=== PATIENT | male | born 1985 | race Caucasian/White ===

== ENCOUNTER 2018-09-25 15:29 | Observation (INO) | payer OTHER ==
[2018-09-25 18:01] LABS: Basophils # (A) 0.1 k/uL (0-0.2); Basophils % (A) 1 %; Eosinophils # (A) 0.3 k/uL (0-0.7); Eosinophils % (A) 4 %; HCT 47.1 % (39.0-53.0); HGB 15.6 gm/dL (13.0-17.5); Lymphocytes # (A) 2.3 k/uL (1.0-4.8); Lymphocytes % (A) 26 %; MCH 31.2 pg (25.0-35.0); MCHC 33.2 g/dL (31.0-37.0); Mean Platelet Volume 6.4; Monocytes # (A) 0.7 k/uL (0-1.0); Monocytes % (A) 8 %; Neutrophils # (A) 5.2 k/uL (1.3-7.7); Neutrophils % (A) 59 %; Platelet Count 283 k/uL (150-450); RBC 5.01 m/uL (4.30-5.90); RDW 12.5 % (11.5-15.5); WBC 8.9 k/uL (3.8-10.6)
[2018-09-25 18:21] LABS: ALT 21 U/L (21-72); AST 25 U/L (17-59); African American GFR (CKD) >90 (>60 ml/min/1.73 sqM); Albumin 4.6 g/dL (3.5-5.0); Alkaline Phosphatase 110 U/L (38-126); Anion Gap 12 mmol/L; Blood Urea Nitrogen 15 mg/dL (9-20); Calcium 9.3 mg/dL (8.4-10.2); Carbon Dioxide 27 mmol/L (22-30); Chloride 102 mmol/L (98-107); Glucose 98 mg/dL (74-99); Potassium 4.5 mmol/L (3.5-5.1); Sodium 141 mmol/L (137-145); Total Bilirubin 0.4 mg/dL (0.2-1.3); Total Protein 7.7 g/dL (6.3-8.2)
[2018-09-25] MEDS ORDERED: AMPICILLIN-SULBACTAM 3 GM in SODIUM CHLORIDE 0.9% 100 ML IVPB STA (18:33)
[2018-09-25] MEDS: SODIUM CHLORIDE 0.9% 1,000 ML IV SCH (19:42)
--- NOTE | 2018-09-25 19:44 | ED ---
General Adult HPI - General Chief complaint: Extremity Problem,Nontraumatic Stated complaint: infected knee Time Seen by Provider: 09/25/18 18:18 Source: patient Mode of arrival: ambulatory Limitations: no limitations - Related Data Home Medications Medication Instructions Recorded Confirmed Cephalexin [Keflex] 500 mg PO TID 09/25/18 09/25/18 Allergies Allergy/AdvReac Type Severity Reaction Status Date / Time No Known Allergies Allergy Verified 09/25/18 19:31 Review of Systems ROS Statement: Those systems with pertinent positive or pertinent negative responses have been documented in the HPI. Review of systems no other complaints other than fever at night. And pain and s welling redness to his left knee. No shortness of breath no other complaints. All systems were reviewed. Past medical problems none. Surgeries none. Family history no cancers. Patient denies ALLERGIES denies smoking denies drinking. Patient reports he had a small cut approximate 1 cm while on the job 2 weeks ago. Not small cut became infected and he squeezed it and pus came out. ALLERGIES none. ROS Other: All systems not noted in ROS Statement are negative. Past Medical History Past Medical History: No Reported History History of Any Multi-Drug Resistant Organisms: None Reported Past Surgical History: No Surgical Hx Reported Past Psychological History: No Psychological Hx Reported Smoking Status: Never smoker Past Alcohol Use History: Occasional Past Drug Use History: None Reported General Exam - General Exam Comments Initial Comments: General: The patient is awake and alert,. The chief complaint of tender red hot left knee. Vital signs temp 98.4 pulse 70 respiratory rate 18 pulse ox on percent room air blood pressure 154/72 No complaint of headache or sore throat. The neck is supple, there is no tenderness Cardiovascular: There is a regular rate and rhythm. No murmur, rub or gallop is appreciated. Respiratory: Lungs are clear to auscultation, respirations are non-labored, breath sounds are equal. No wheezes, stridor, rales, or rhonchi. Gastrointestinal: No complaint of nausea vomiting or diarrhea. No difficulty urinating. No flank pain. Musculoskeletal: Cellulitis noted over the left patella. Patient's been on cephalexin for 2 days. The redness and tenderness is becoming slightly worse. No obvious abscess. There is to be a small, 1 cm healed wound with the patient reports the infection probably started over 2 weeks ago. Neurological: CN II-XII intact, There are no obvious motor or sensory deficits. Coordination appears grossly intact. Speech is normal. Limitations: no limitations Course Vital Signs 09/25/18 16:31 Temperature 98.4 F Pulse Rate 70 Respiratory 18 Rate Blood Pressure 134/72 O2 Sat by Pulse 100 Oximetry Medical Decision Making - Medical Decision Making Medical decision making; the 33-year-old male with a complaint of worsening infection to his left knee. The patient reports approximately 2 weeks ago he had a small cut on his knee a week later developed a small abscess he squeezed it and pus came out and then a week later he had pain and swelling redness to the left knee. He reports for the past 2 nights had a fever. 2 days ago he went to a clinic was started on cephalexin 503 times a day. But the red area around the knee has increased in size. Mildly fluctuant. Pain increases with knee flexion. The patient's labs show white count 8.9 hemoglobin 15.6 hematocrit of 47 with a potassium 4.5. BUN 15 creatinine 0.74 the GFR greater than 90. Glucose 98. X-ray of the left knee was reviewed by radiologist his impression is prepatellar soft tissue swelling from patella and tibial tuberosity. No radiopaque foreign body, no tissue emphysema. As read by Dr. Meaghan Mcdaniel failed outpatient treatment with 2 days of oral cephalexin. He received 3 g of Unasyn while in emergency room. The plan for patient is to be admitted to orthopedics with IV Unasyn. Patient's case discussed with Dr. Harrison on-call orthopedics. Patient be admitted his service for continued IV antibiotics of Unasyn for failed outpatient treatment of cellulitis left prepatellar region - Lab Data Result diagrams: 09/25/18 17:47 09/25/18 17:47 Lab Results 09/25/18 09/25/18 Range/Units 17:47 17:47 WBC 8.9 (3.8-10.6) k/uL RBC 5.01 (4.30-5.90) m/uL Hgb 15.6 (13.0-17.5) gm/dL Hct 47.1 (39.0-53.0) % MCV 94.0 (80.0-100.0) fL MCH 31.2 (25.0-35.0) pg MCHC 33.2 (31.0-37.0) g/dL RDW 12.5 (11.5-15.5) % Plt Count 283 (150-450) k/uL Neutrophils % 59 % Lymphocytes % 26 % Monocytes % 8 % Eosinophils % 4 % Basophils % 1 % Neutrophils # 5.2 (1.3-7.7) k/uL Lymphocytes # 2.3 (1.0-4.8) k/uL Monocytes # 0.7 (0-1.0) k/uL Eosinophils # 0.3 (0-0.7) k/uL Basophils # 0.1 (0-0.2) k/uL Sodium 141 (137-145) mmol/L Potassium 4.5 (3.5-5.1) mmol/L Chloride 102 (98-107) mmol/L Carbon Dioxide 27 (22-30) mmol/L Anion Gap 12 mmol/L BUN 15 (9-20) mg/dL Creatinine 0.74 (0.66-1.25) mg/dL Est GFR (CKD-EPI)AfAm >90 (>60 ml/min/1.73 sqM) Est GFR (CKD-EPI)NonAf >90 (>60 ml/min/1.73 sqM) Glucose 98 (74-99) mg/dL Calcium 9.3 (8.4-10.2) mg/dL Total Bilirubin 0.4 (0.2-1.3) mg/dL AST 25 (17-59) U/L ALT 21 (21-72) U/L Alkaline Phosphatase 110 (38-126) U/L Total Protein 7.7 (6.3-8.2) g/dL Albumin 4.6 (3.5-5.0) g/dL Disposition Clinical Impression: Infection of prepatellar bursa Disposition: ADMITTED IP TO THIS HOSP Condition: Fair Referrals: None,Stated [Primary Care Provider] - 1-2 days
--- NOTE | 2018-09-25 20:16 | XR ---
PROCEDURE: XR knee 4V LT - 4V DATE AND TIME: 09/25/2018 7:32 PM CLINICAL INDICATION: PHH; Infection, rule out foreign body TECHNIQUE: Department protocol COMPARISON: None FINDINGS: There is no fracture or malalignment. There is prominent and uniform prepatellar soft tissue swelling, extending from the patella to the ti bial tuberosity. However, there is no associated radiopaque foreign body and no soft tissue emphysema IMPRESSION: Soft tissue swelling.
[2018-09-25] MEDS ORDERED: IBUPROFEN 400 MG TAB PO PRN (20:53)
[2018-09-25] MEDS ORDERED: NALOXONE 0.4 MG/ML 1 ML VIAL IV PRN (20:53)
[2018-09-25] MEDS: AMPICILLIN-SULBACTAM 1.5 GM in SODIUM CHLORIDE 0.9% 50 ML IVPB SCH (21:07)
[2018-09-26] MEDS: AMPICILLIN-SULBACTAM 1.5 GM in SODIUM CHLORIDE 0.9% 50 ML IVPB SCH ×4 (03:43→22:16)
--- NOTE | 2018-09-26 12:26 | P.HPOR ---
History of Present Illness H&P Date: 09/26/18 This patient is a 33-year-old male with no reported past medical history that presented to [facility] ED yesterday due to left knee swelling, erythema, and pain. The patient states that he developed erythema and swelling of the knee earlier this week. He states he was experiencing pain on ambulation, fevers, chills and decided to present to an urgent care on Friday for this issue and was placed on oral Keflex. Patient notes he cut the anterior knee about 2 weeks ago while at work, he works as a garcia. He states he does not remember what he cut the knee on. He states that he noticed a small abscess a few days later, which he squeezed and pus was expressed from the area. He states he noticed a mild improvement in symptoms after starting the oral Keflex, he is no longer experiencing pain with ambulation or fevers, although he states that he noticed the erythema was extending from the knee to the anterior lower leg, therefore he presented to the emergency department for further evaluation. Patient was placed on IV Unasyn in the emergency department, and was admitted to orthopedics for further treatment. At the time of my exam, the patient denies pain with range of motion of the left knee. He also denies pain with weightbearing or with ambulation. Patient denies generalized fatigue, fevers, chills, nausea, vomiting. He states he is tolerating his diet well. Overall, he states he feels well denies significant pain in the knee. Patient also denies left hip pain, left ankle pain, left foot pain. He denies any previous history of problems with his left knee, or other joints. He denies any injury to the left knee. He denies additional complaints or concerns. Patient states he does not have a primary care physician and has not been seen by his family doctor in a long time. Vital signs stable. Past Medical History Past Medical History: No Reported History Additional Past Medical History / Comment(s): R knee infection 10 years ago History of Any Multi-Drug Resistant Organisms: None Reported Past Surgical History: No Surgical Hx Reported Past Psychological History: No Psychological Hx Reported Smoking Status: Never smoker Past Alcohol Use History: Occasional Past Drug Use History: None Reported Medications and Allergies Home Medications Medication Instructions Recorded Confirmed Type Cephalexin [Keflex] 500 mg PO TID 09/25/18 09/25/18 History Allergies Allergy/AdvReac Type Severity Reaction Status Date / Time No Known Allergies Allergy Verified 09/25/18 19:31 Physical Examination On examination, the patient is lying in bed in no apparent distress. He is alert and oriented 3. His head is normocephalic and atraumatic. His breathing appears nonlabored. On inspection of the left lower extremity, there is erythema and warmth of the knee that extends to the mid-lower leg. The anterior knee is not painful to palpation, this area is mildly fluctuant. There is no pain with passive range of motion of the left knee, left ankle, left hip. There is no pain with logrolling. The left lower extremity is warm and well- perfused, neurovascular status and circulatory status are intact. The left calf is soft and nontender to palpation. Results Left knee x-ray 09/25/18: There are no acute or healing fractures. No acute bony abnormalities. - Labs Labs: H & H 09/25/18 Range/Units 17:47 Hgb 15.6 (13.0-17.5) gm/dL Hct 47.1 (39.0-53.0) % Result Diagrams: 09/25/18 17:47 09/25/18 17:47 Assessment and Plan Assessment: Prepatellar bursitis/cellulitis, left knee. Plan: - No surgical intervention is planned at this time. We will continue IV antibiotics at this time. Internal medicine consulted for antibiotic management. - Continue pain control with ibuprofen. - We will continue to monitor patient's response to IV antibiotics.
--- NOTE | 2018-09-26 16:53 | US ---
EXAMINATION TYPE: US venous doppler duplex LE LT DATE OF EXAM: 09/26/2018 4:43 PM COMPARISON: NONE CLINICAL HISTORY: LLE extremity pain and swelling. Anterior left leg redness. No hx of blood clots. No injury. Not on blood thinners. SIDE PERFORMED: Left TECHNIQUE: The lower extremity deep venous system is examined utilizing real time linear array sonog derek with graded compression, doppler sonography and color-flow sonography. VESSELS IMAGED: External Iliac Vein (EIV) Common Femoral Vein Deep Femoral Vein Greater Saphenous Vein * Femoral Vein Popliteal Vein Small Saphenous Vein * Proximal Calf Veins (* superficial vessels) Left Leg: Negative for DVT. Prominent lymph node seen in left groin = 4.1 x 1.9 x 1.0 cm Grayscale, color doppler, spectral doppler imaging performed of the deep veins of the left lower extr emity. There is normal flow, compressibility, vascular waveforms. IMPRESSION: No sonographic evidence of deep venous thrombosis within the left lower extremity. Upper limits of normal superficial inguinal lymph node on the right may be reactive and could be reevaluate d in 3 months time to assess for resolution or persistence.
[2018-09-26] MEDS: SODIUM CHLORIDE 0.9% 1,000 ML IV SCH (21:50)
[2018-09-26 22:10] VITALS: RESP 16
[2018-09-27] MEDS: AMPICILLIN-SULBACTAM 1.5 GM in SODIUM CHLORIDE 0.9% 50 ML IVPB SCH ×2 (02:47→08:40)
[2018-09-27 12:57] VITALS: BP 133/78; PULSE 64; TEMP 97.8
--- NOTE | 2018-09-27 14:37 | P.CONS ---
History of Present Illness - Reason for Consult Consult date: 09/27/18 Medical management - Chief Complaint Left knee pain - History of Present Illness Patient is a 33-year-old male without significant past medical history came to ER with complaints of left knee swelling and redness and pain. Patient says that he had a cut on the left basilar 2 weeks ago, earlier this week it started developing redness of the left knee. Patient was also having difficulty examina tion along with fever and chills, decided to present to an urgent care facility on Friday. Patient was prescribed with Keflex 500 mg 3 times daily. Patient has been taking medication for 2 days and his left knee swelling did not get any better and is worsening redness around the lower extremity. Patient came to ER for further evaluation. Patient was started on antibiotics in the form of Xin syn in the ER. Patient currently denied any complaints of chest pain or shortness of breath. No fever no chills. Overall swelling is improving. Range of motion at the knee joint is also improved. No joint effusion noted. Medicine service was consulted for antibiotic recommendations and further f ollow-up. Review of Systems Constitutional: Patient denies any fever or chills . No generalized weakness or weight loss. Abdomen: Patient denied nausea vomiting and diarrhea and abdominal pain. Cardiovascular: Patient denies any chest pain or short of breath no palpitations. Respiratory: patient denied any cough is from production. No shortness of breath Neurologic: Patient denied any numbness or tingling headache. Musculoskeletal: Patient does have pain over the left knee and redness. Skin: Negative Psychiatric: Negative Endocrine: No heat or cold intolerance. No recent weight gain. Genitourinary: No dysuria or hematuria. All other 14 point ROS negative except the above Past Medical History Past Medical History: No Reported History Additional Past Medical History / Comment(s): R knee infection 10 years ago History of Any Multi-Drug Resistant Organisms: None Reported Past Surgical History: No Surgical Hx Reported Past Psychological History: No Psychological Hx Reported Smoking Status: Never smoker Past Alcohol Use History: Occasional Past Drug Use History: None Reported Medications and Allergies Home Medications Medication Instructions Recorded Confirmed Type Ibuprofen [Motrin] 400 mg PO Q8HR PRN #20 tab 09/27/18 Rx Sulfamethox-Tmp 800-160Mg [Bactrim 1 tab PO Q12HR 5 Days #10 tab 06/30/19 Rx DS 800-160 mg] Allergies Allergy/AdvReac Type Severity Reaction Status Date / Time No Known Allergies Allergy Verified 09/25/18 19:31 Physical Exam Vitals: Vital Signs Temp Pulse Resp BP Pulse Ox 09/27/18 08:00 63 16 09/27/18 05:00 98.0 F 63 16 129/63 99 09/26/18 23:39 78 16 09/26/18 21:00 98.1 F 78 16 138/81 98 09/26/18 16:00 72 17 09/26/18 15:00 98.1 F 72 17 119/49 95 Intake and Output 09/26/18 09/27/18 09/27/18 22:59 06:59 14:59 Intake Total 630 630 Balance 630 630 Intake: Intake, IV Titration 150 210 Amount Ampicillin-Sulbactam 1.5 50 50 gm In Sodium Chloride 0.9 % 50 ml @ 100 mls/hr IVPB Q6H [facility] Rx#:[id number] Sodium Chloride 0.9% 1, 100 160 000 ml @ 20 mls/hr IV . Q24H [facility] Rx#:[id number] Oral 480 420 Other: # Voids 1 1 PHYSICAL EXAMINATION: Patient is lying in the bed comfortably, no acute distress, awake alert and oriented.. HEENT: Normocephalic. Neck is supple. Pupils reactive. Nostrils clear. Oral cavity is moist. Ears reveal no drainage. Neck reveals no JVD, carotid bruits, or thyromegaly. CHEST EXAMINATION: Trachea is central. Symmetrical expansion. Lung mckeon clear to auscultation and percussion. CARDIAC: Normal S1, S2 with no gallops. No murmurs ABDOMEN: Soft. Bowel sounds normal. No organomegaly. No abdominal bruits. Extremities: reveal no edema. No clubbing or cyanosis Neurologically awake, alert, oriented x3 with well-coordinated movements. No focal deficits noted Skin: No rash or skin lesions. Psychiatric: Coperative. Nonsuicidal Musculoskeletal: No joint swelling or deformity. Redness and tenderness over the left patellar and infra-fact left recent. Redness up to left calf area is improved now. Range of motion intact.. Results CBC & Chem 7: 09/25/18 17:47 09/25/18 17:47 Labs: Microbiology - Last 24 Hours (Table) 09/25/18 17:47 Blood Culture - Preliminary Blood No Growth after 24 hours Assessment and Plan Assessment: Left lateral lower and infra patellar bursitis with possible surrounding cellulitis. Cut Injury on the left patella 2 weeks ago DVT prophylaxis. Currently ambulation. Plan: Patient will be continued on IV antibiotics in the form of Unasyn at this time. Continue changed to Bactrim DS for next 5-7 days was less redness is improving. Pain management with Motrin and warm compresses. Follow with PCP or orthopedic clinic in the next 3-5 days. Follow closely and further recommendations based on the clinical course. Time with Patient: Greater than 30
--- NOTE | 2018-09-27 16:57 | P.DS ---
Providers Date of admission: 09/25/18 20:53 Expected date of discharge: 09/27/18 Attending physician: Carlos Harrison Consults: 09/26/18 11:56 Consult Physician Urgent Consulting Provider: Fabricio Sawyer Consult Reason/Comments: Left lower extremity cellulitis Do you want consulting provider notified?: Yes Primary care physician: Stated None Hospital Course: This patient is a 33-year-old male with no reported past medical history that presented to [facility] ED 09/25/18 due to left prepatellar bursitis/cellulitis that had failed outpatient treatment. The patient noticed swelling of the knee and anterior lower leg earlier in the week, and he was evaluated at an urgent care, who placed him on oral Keflex. The swelling and erythema continued to worsen, therefore the patient presented to [facility] ED for evaluation. The patient was admitted under the care of Dr. Harrison, with a consult placed to internal medicine for IV antibiotics. The patient was examined bedside today. He continues to improve on IV antibiotics. He states he is not feeling pain in the left knee with ambulation, or at rest. He continues to tolerate his diet well. He denies fevers, chills, nausea, vomiting, or malaise. He denies any new concerns. Vital signs stable. On examination, the patient is sitting up in bed in no apparent distress. He is alert and orientated x3. On inspection of the left lower extremity, there is minimal erythema and warmth of the knee that extends to just below the knee. The anterior knee is not painful to palpation, there is minimal fluctuance. There is no pain with passive range of motion of the left knee, left ankle, left hip. There is no pain with logrolling. Patient has good ROM of the knee, ankle, and foot. The left lower extremity is warm and well-perfused, neurovascular status and circulatory status are intact. The left calf is soft and nontender to palpation. The patient is discharged home today in good condition, by internal medicine. Antibiotics will be continued orally, per internal medicine recommendations. Please see discharge orders. Patient Condition at Discharge: Fair Plan - Discharge Summary Discharge Rx Participant: No New Discharge Prescriptions: New Ibuprofen [Motrin] 400 mg PO Q8HR PRN #20 tab PRN Reason: Mild Pain Or Fever > 100.5 Sulfamethox-Tmp 800-160Mg [Bactrim DS 800-160 mg] 1 tab PO Q12HR 5 Days #10 tab Discontinued Cephalexin [Keflex] 500 mg PO TID Discharge Medication List Ibuprofen [Motrin] 400 mg PO Q8HR PRN #20 tab 09/27/18 [Rx] Sulfamethox-Tmp 800-160Mg [Bactrim DS 800-160 mg] 1 tab PO Q12HR 5 Days #10 tab 09/27/18 [Rx] Follow up Appointment(s)/Referral(s): Artur López MD [REFERRING] - 1 Week None,Stated [Primary Care Provider] - 1-2 days Carlos Harrison MD [STAFF PHYSICIAN] - As Needed Patient Instructions/Handouts: Sulfamethoxazole/Trimethoprim (By mouth), Ibuprofen (By mouth), Knee Bursitis (ED) Activity/Diet/Wound Care/Special Instructions: diet as tolerated activity limited until seen by medical [facility] out[facility] clinics in the area SEE LIST - You may weight bear to tolerance on the right leg. - Warm compresses to the right knee. - Continue antibiotics, per internal medicine recommendations. - Return to hospital if symptoms fail to improve, or worsen. - Recommend the patient follow-up with primary care physician within the week. Discharge Disposition: HOME SELF-CARE
== END 2018-09-27 15:33 | disposition home or self-care (01) ==
LOC: EC 15:29 → 3NMEDONC 20:53
PROVIDERS: ADMIT Orthopaedic Surgery Sports Medicine; ATTEND Orthopaedic Surgery Sports Medicine
DX: M71.162 Other infective bursitis, left knee (principal); L03.116 Cellulitis of left lower limb; Z86.19 Personal history of other infectious and parasitic diseases; Z79.2 Long term (current) use of antibiotics
CPT/HCPCS: 96366 ×4; 96365; 99285; 36415; 80053; 85025; 87040; 73564; 93971; G0378 ×3; J0295 ×3